=== PATIENT | female | born 1985 | race Asian ===

== ENCOUNTER 2017-01-01 07:02 | Inpatient (IN) | payer OTHER ==
[~2017-01-01] VITALS: Ht 152.4 cm; Wt 68.2 kg
[2017-01-01 07:05] VITALS: BP 132/90
[2017-01-01] MEDS ORDERED: NEWBORN KIT ONE ×2 (07:15→07:44)
[2017-01-01] MEDS ORDERED: OXYTOCIN 30U/ 0.9% NaCL 500ML 500 ML IV ONE (07:23)
[2017-01-01] MEDS ORDERED: TERBUTALINE 1 MG/ML, 1ML IVPush PRN (07:30)
[2017-01-01] MEDS ORDERED: FENTANYL PF 100 MCG/2ML IVPush PRN (07:30)
[2017-01-01] MEDS ORDERED: FENTANYL PF 100 MCG/2ML IV PRN (07:30)
[2017-01-01] MEDS ORDERED: OXYTOCIN 30U/ 0.9% NaCL 500ML 500 ML ONE (07:43)
[2017-01-01] MEDS ORDERED: LIDOCAINE 1%, 20ML ONE (07:44)
[2017-01-01] MEDS ORDERED: PLEASE ENTER ALLERGIES MC SCH ×2 (08:00)
[2017-01-01] MEDS ORDERED: PLEASE ENTER HEIGHT AND WEIGHT MC SCH (08:00)
[2017-01-01] MEDS ORDERED: OXYcodone/APAP 5/325MG TABLET PO PRN (08:30)
[2017-01-01] MEDS ORDERED: DOCUSATE 100 MG CAPSULE PO PRN (08:30)
[2017-01-01] MEDS ORDERED: ONDANSETRON 2MG/ML, 2ML IV PRN (08:30)
[2017-01-01] MEDS ORDERED: MISOPROSTOL 200 MCG TABLET PR PRN (08:30)
[2017-01-01] MEDS: LACTATED RINGERS 1,000 ML IV SCH ×2 (08:38→09:31)
[2017-01-01] MEDS: OXYTOCIN 30U/ 0.9% NaCL 500ML 500 ML IV SCH ×2 (08:38→18:17)
[2017-01-01] MEDS ORDERED: IBUPROFEN 600 MG TABLET ONE (08:41)
[2017-01-01] MEDS: IBUPROFEN 600 MG TABLET PO PRN ×3 (08:42→23:06)
[2017-01-01] MEDS: PRENATAL VIT/IRON/FA 1 EACH TABLET PO SCH (09:00)
[2017-01-01] MEDS ORDERED: PREN1TAB60 PO (09:30)
[2017-01-01 12:39] VITALS: BP 120/71
[2017-01-01] MEDS: OXYcodone/APAP 5/325MG TABLET PO PRN ×3 (12:41→23:06)
[2017-01-01 16:37] VITALS: BP 107/73
[2017-01-01 20:00] VITALS: BP 107/68
[2017-01-02 00:10] VITALS: BP 110/66
[2017-01-02 04:30] VITALS: BP 107/68
[2017-01-02] MEDS: IBUPROFEN 600 MG TABLET PO PRN ×2 (05:17→11:15)
[2017-01-02] MEDS: OXYcodone/APAP 5/325MG TABLET PO PRN ×2 (05:17→11:15)
[2017-01-02 07:05] VITALS: BP 110/72
[2017-01-02] MEDS: PRENATAL VIT/IRON/FA 1 EACH TABLET PO SCH (09:15)
[2017-01-02] MEDS ORDERED: OXYC-302 PO (10:43)
[2017-01-02] MEDS ORDERED: IBUP200T48 PO (10:44)
== END 2017-01-02 12:40 | disposition home or self-care (01) | DRG 775 ==
LOC: LDOP 07:02 → LDIP 07:09 → UNDOADMIN 07:17 → LDIP 07:17 → 2NW 10:05
PROVIDERS: ADMIT Obstetrics & Gynecology; ATTEND Obstetrics & Gynecology
PROC: 10E0XZZ Delivery of Products of Conception, External Approach (ICD-10-PCS; principal; 2017-01-01)
PROC: 0KQM0ZZ Repair Perineum Muscle, Open Approach (ICD-10-PCS; 2017-01-01)
PROC: 3E0334Z Introduction of Serum, Toxoid and Vaccine into Peripheral Vein, Percutaneous Approach (ICD-10-PCS; 2017-01-01)
DX: O34.219 Maternal care for unspecified type scar from previous cesarean delivery (principal); Z37.0 Single live birth; Z3A.38 38 weeks gestation of pregnancy; O70.1 Second degree perineal laceration during delivery
CPT/HCPCS: 36415; 85025; 85461; 86850; 86900; J2790; J2590; J7120